=== PATIENT | female | born 1990 | race Caucasian/White ===

== ENCOUNTER 2019-04-24 20:02 | Emergency (ER) | payer OTHER ==
[~2019-04-24] VITALS: Ht 162.6 cm; Wt 61.2 kg
[2019-04-24] MEDS ORDERED: SYNTHROID125 MCG PO (20:28)
== END 2019-04-24 22:15 | disposition home or self-care (01) ==
LOC: ER 20:02
DX: H01.001 Unspecified blepharitis right upper eyelid (principal); R10.2 Pelvic and perineal pain